=== PATIENT | male | born 1980 | race African-American/Black ===

== ENCOUNTER 2017-12-11 13:40 | Outpatient (CLI) | payer BC | END 2017-12-11 15:53 | disposition home or self-care (01) | LOC: HPC 13:40 | DX: C16.9 Malignant neoplasm of stomach, unspecified (principal); N17.9 Acute kidney failure, unspecified; E87.5 Hyperkalemia; Z93.6 Other artificial openings of urinary tract status | CPT/HCPCS: G0463 ==

== ENCOUNTER 2018-09-06 17:16 | Inpatient (IN) | payer BC ==
[2018-09-06] MEDS ORDERED: DEXTROSE 50% 50 ML SYRINGE (17:49)
[2018-09-06 18:14] LABS: WHITE BLOOD COUNT 3.8 10^3/ul (4.8-10.8)
[2018-09-06 18:14] LABS: ABNORMAL IP MESSAGE 1; HEMATOCRIT 29.9 % (42.0-52.0); HEMOGLOBIN 9.1 g/dl (14.0-18.0); MEAN CORPUSCULAR HEMOGLOBIN 24.9 pg (29.0-33.0); MEAN CORPUSCULAR HGB CONC 30.4 g/dl (32.0-37.0); MEAN CORPUSCULAR VOLUME 81.9 fl (82.0-101.0); MEAN PLATELET VOLUME 9.6 fl (7.4-10.4); PLATELET COUNT 202 10^3/UL (140-415); POSITIVE DIFF @See below; RED BLOOD COUNT 3.65 10^6/ul (4.70-6.10); RED CELL DISTRIBUTION WIDTH 25.7 % (11.5-14.5)
[2018-09-06] MEDS: SOD CHLORIDE 0.9% 1,000 ML IV (18:18)
[2018-09-06 18:19] LABS: ADD MAN DIFF? YES
[2018-09-06 18:29] LABS: INR 1.64; PROTIME 19.8 Sec (11.9-14.9); PT RATIO 1.5
[2018-09-06 18:30] LABS: PARTIAL THROMBOPLASTIN TIME 43.2 Sec (23.0-35.0)
[2018-09-06] MEDS: DEXTROSE 50% 50 ML SYRINGE IV (18:32)
[2018-09-06 18:33] LABS: ALANINE AMINOTRANSFERASE 39 IU/L (13-69); ALBUMIN/GLOBULIN RATIO 0.76; ALKALINE PHOSPHATASE 61 IU/L (42-121); ANION GAP 12 (8-16); ASPARTATE AMINO TRANSFERASE 52 IU/L (15-46); BILIRUBIN,INDIRECT 0.3 mg/dl (0-1.1); BILIRUBIN,TOTAL 0.3 mg/dl (0.2-1.3); BLOOD UREA NITROGEN 51 mg/dl (7-20); CALCIUM 7.4 mg/dl (8.4-10.2); CARBON DIOXIDE 22 mmol/L (21-31); CHLORIDE 108 mmol/L (97-110); CREATININE 1.09 mg/dl (0.61-1.24); GLUCOSE 84 mg/dl (70-220); SODIUM 138 mmol/L (135-144); TOTAL PROTEIN 4.6 g/dl (6.1-8.1)
[2018-09-06 18:34] LABS: LACTIC ACID 1.9 mmol/L (0.5-2.0)
[2018-09-06] MEDS: NALOXONE (0.4 MG/ML) INJ IV (18:46)
[2018-09-06] MEDS: LORAZEPAM 2 MG INJ IV (18:50)
[2018-09-06 18:54] LABS: ACANTHOCYTES 1+ (0-0); ANISOCYTOSIS 2+ (0-0); BAND NEUTROPHILS #M 1.2 10^3/ul (0.0-0.6); BAND NEUTROPHILS % (M) 32 % (0-4); BURR CELLS 2+ (0-0); ECHINOCYTOSIS 2+ (0-0); GIANT THROMBO% (M) 4 % (0-0); LYMPHOCYTES #M 0.6 10^3/ul (0.8-2.9); LYMPHOCYTES % (M) 18 % (15-51); METAMYELOCYTES %M 2 % (0-0); MONOCYTE #M 0.2 10^3/ul (0.3-0.9); MONOCYTES % (M) 7 % (0-11); MYELOCYTES #M 0.1 10^3/ul (0.0-0.0); MYELOCYTES % (M) 4 % (0-0); OVALOCYTES 1+ (0-0); POIKILOCYTOSIS 3+ (0-0); POLYCHROMASIA 1+ (0-0); SCHISTOCYTES 1+ (0-0); SEG NEUT #M 1.5 10^3/ul (1.6-7.5); SEGMENTED NEUTROPHILS (M) % 37 % (39-77); SMUDGE%M 17 % (0-0); SPHEROCYTES 1+ (0-0); TARGET CELLS 1+ (0-0)
[2018-09-06] MEDS ORDERED: ACETAMINOPHEN 325 MG TAB PO ×2 (21:00→22:30)
[2018-09-06] MEDS ORDERED: ONDANSETRON 4 MG INJ IV ×2 (21:00→22:30)
[2018-09-06] MEDS ORDERED: ALBUTEROL/IPRATROPIUM (NEB) 3 ML AMP HHN (22:30)
[2018-09-06] MEDS ORDERED: NACL 0.9% 3 ML SYG IV (22:30)
[2018-09-06] MEDS ORDERED: HYDROCODONE/APAP (5/325) TAB PO ×2 (22:30)
[2018-09-06] MEDS ORDERED: PROCHLORPERAZINE 10 MG TAB PO (22:30)
[2018-09-06] MEDS: CEFEPIME 2GM/50 ML (PMX) 50 ML IVPB (22:34)
[2018-09-07] MEDS: SOD CHLORIDE 0.9% 1,000 ML IV (00:39)
[2018-09-07] MEDS: VANCOMYCIN 1 GM (PMX) 250 ML IVPB (00:39)
[2018-09-07] MEDS ORDERED: GUAIFENESIN/CODEINE 5ML CUP PO (01:30)
[2018-09-07] MEDS ORDERED: DEXTROSE 50% 50 ML SYRINGE ×3 (04:07→07:00)
[2018-09-07] MEDS ORDERED: NORepinephrine 8MG/250 ML (PMX 250 ML IV (05:00)
[2018-09-07] MEDS ORDERED: VANCOMYCIN IV PER PHARMACY XX (05:00)
[2018-09-07 05:13] LABS: ADD MAN DIFF? NO
[2018-09-07 05:19] LABS: WHITE BLOOD COUNT 3.6 10^3/ul (4.8-10.8)
[2018-09-07 05:19] LABS: ABNORMAL IP MESSAGE 1; BASOPHILS % 0.6 % (0.0-2.0); HEMATOCRIT 25.6 % (42.0-52.0); HEMOGLOBIN 8.1 g/dl (14.0-18.0); LYMPHOCYTES # 0.6 10^3/ul (0.8-2.9); LYMPHOCYTES % 16.1 % (15.0-51.0); MEAN CORPUSCULAR HEMOGLOBIN 25.9 pg (29.0-33.0); MEAN CORPUSCULAR HGB CONC 31.6 g/dl (32.0-37.0); MEAN CORPUSCULAR VOLUME 81.8 fl (82.0-101.0); MEAN PLATELET VOLUME 9.6 fl (7.4-10.4); MONOCYTE # 0.1 10^3/ul (0.3-0.9); MONOCYTES % 2.8 % (0.0-11.0); NEUTROPHIL # 2.9 10^3/ul (1.6-7.5); NEUTROPHILS % 79.9 % (39.0-77.0); PLATELET COUNT 164 10^3/UL (140-415); POSITIVE DIFF @See below; RED BLOOD COUNT 3.13 10^6/ul (4.70-6.10); RED CELL DISTRIBUTION WIDTH 25.6 % (11.5-14.5)
[2018-09-07] MEDS: DEXTROSE 5%-0.45% NACL 1,000 ML IV ×2 (05:30)
[2018-09-07 06:02] LABS: ALANINE AMINOTRANSFERASE 38 IU/L (13-69); ALBUMIN 1.5 g/dl (3.3-4.9); ALBUMIN/GLOBULIN RATIO 0.75; ALKALINE PHOSPHATASE 48 IU/L (42-121); ANION GAP 11 (8-16); ASPARTATE AMINO TRANSFERASE 48 IU/L (15-46); BILIRUBIN,INDIRECT 0.3 mg/dl (0-1.1); BILIRUBIN,TOTAL 0.3 mg/dl (0.2-1.3); BLOOD UREA NITROGEN 54 mg/dl (7-20); CALCIUM 6.4 mg/dl (8.4-10.2); CARBON DIOXIDE 23 mmol/L (21-31); CHLORIDE 110 mmol/L (97-110); CREATININE 0.96 mg/dl (0.61-1.24); GLUCOSE 205 mg/dl (70-220); MAGNESIUM 2.3 mg/dl (1.7-2.5); POTASSIUM 4.4 mmol/L (3.5-5.1); SODIUM 140 mmol/L (135-144); TOTAL PROTEIN 3.5 g/dl (6.1-8.1)
[2018-09-07] MEDS ORDERED: NA BICARBONATE 8.4% 50 ML SYG (07:00)
[2018-09-07] MEDS: LIDOCAINE 1% (MPF) 5 ML VIAL SC (07:00)
[2018-09-07] MEDS ORDERED: EPINEPHrine 100 MCG/10 ML SYG IV (07:00)
[2018-09-07 08:36] LABS: Allen Test ACCEPTAB; Arterial Base Excess -8.6 mmol/L (-3.0-3); Arterial Blood Gas Oxygen Sat 89.4 mmHG (95.0-98.0); Arterial COHb 0.9 % (0.0-3.0); Arterial Fraction of Oxyhgb 88.3 % (93.0-99.0); Arterial HCO3 17.4 mmol/L (22.0-26.0); Arterial MetHb 0.3 % (0.0-1.5); Arterial Total Hemglobin 12.2 g/dl (12.0-18.0); Arterial pCO2 37.6 mmhg (35-45); MODE VENT - AC; Site Right Radial
[2018-09-07 08:37] LABS: ANISOCYTOSIS 2+ (0-0); BAND NEUTROPHILS #M 1.5 10^3/ul (0.0-0.6); BAND NEUTROPHILS % (M) 43 % (0-4); BURR CELLS 2+ (0-0); LYMPHOCYTES #M 0.6 10^3/ul (0.8-2.9); LYMPHOCYTES % (M) 19 % (15-51); METAMYELOCYTES #M 0.1 10^3/ul (0.0-0.0); METAMYELOCYTES %M 3 % (0-0); MONOCYTE #M 0.1 10^3/ul (0.3-0.9); MONOCYTES % (M) 4 % (0-11); MYELOCYTES % (M) 1 % (0-0); OVALOCYTES 1+ (0-0); PLATELET ESTIMATE NORMAL; POIKILOCYTOSIS 3+ (0-0); REACTIVE LYMPHOCYTES% (M) 1 % (0-0); SCHISTOCYTES 1+ (0-0); SEG NEUT #M 1.1 10^3/ul (1.6-7.5); SEGMENTED NEUTROPHILS (M) % 29 % (39-77); SMUDGE%M 27 % (0-0); TARGET CELLS 1+ (0-0)
[2018-09-07] MEDS: HYDROmorphONE 1 MG/ML SYG IV (08:53)
[2018-09-07] MEDS ORDERED: SUCCINYLCHOLINE CHLORIDE 100 MG/5 ML SYG IV ×2 (09:00)
[2018-09-07] MEDS: oxyCODONE (CR) 10 MG TAB [oxyCONTIN] PO ×2 (09:00→20:53)
[2018-09-07] MEDS: DIVALPROEX (EC) 500 MG TAB PO ×2 (09:00→09:17)
[2018-09-07] MEDS ORDERED: ETOMIDATE 20 MG INJ (09:00)
[2018-09-07] MEDS: NA BICARBONATE 8.4% 50 ML SYG IV ×2 (09:16→20:58)
[2018-09-07] MEDS: GABAPENTIN 300 MG CAP PO ×4 (09:17→20:59)
[2018-09-07] MEDS: DOCUSATE SODIUM 100 MG CAP PO ×2 (09:17→20:59)
[2018-09-07] MEDS: CEFEPIME 1GM/50 ML (PMX) 50 ML IVPB (09:17)
[2018-09-07] MEDS: CREON (24K-76K-120K) 1 CAP PO ×4 (09:59→17:31)
[2018-09-07] MEDS: LAMOTRIGINE 100 MG TAB PO ×2 (09:59→20:59)
[2018-09-07] MEDS: SODIUM BICARBONATE (IV ADD) 50 MEQ in DEXTROSE 5%-0.45% NACL 1,000 ML IV (10:15)
[2018-09-07] MEDS: DEXTROSE 50% 50 ML SYRINGE IV ×2 (10:42→13:07)
[2018-09-07] MEDS ORDERED: GLUCOSE GEL 15 GRAM TUBE PO ×2 (11:00)
[2018-09-07] MEDS ORDERED: GLUCOSE GEL 15 GRAM TUBE BUCCAL (11:00)
[2018-09-07] MEDS ORDERED: DEXTROSE 50% 50 ML SYRINGE IV (11:00)
[2018-09-07] MEDS ORDERED: GLUCAGON 1 MG INJ IM (11:00)
[2018-09-07] MEDS: MIDAZOLAM (DRIP) 50 mg/50 mL 50 ML IV (12:22)
[2018-09-07] MEDS: VANCOMYCIN 750 MG in SOD CHLORIDE 0.9% 150 ML IVPB (12:39)
[2018-09-07] MEDS ORDERED: LACTATED RINGER'S 1,000 ML IV (13:00)
[2018-09-07] MEDS ORDERED: LACTATED RINGER'S 500 ML IV (13:00)
[2018-09-07] MEDS ORDERED: FENTAnyl (DRIP) 1000 mcg/100mL 100 ML IV (13:00)
[2018-09-07] MEDS ORDERED: DEXTROSE 5%-LR 1,000 ML IV (13:00)
[2018-09-07] MEDS: LACTATED RINGER'S 500 ML IV (13:07)
[2018-09-07 13:11] LABS: LACTIC ACID 2.1 mmol/L (0.5-2.0)
[2018-09-07] MEDS: HEPARIN 5,000 UNIT/0.5 ML VIAL SC ×2 (13:16→21:00)
[2018-09-07] MEDS: FENTAnyl (DRIP) 1000 mcg/100mL 100 ML IV (13:17)
[2018-09-07] MEDS ORDERED: [UNRECOGNIZED DRUG - OTHER] IV (13:30)
[2018-09-07] MEDS ORDERED: DEXTROSE 10% IV ×2 (13:30→16:30)
[2018-09-07] MEDS: HYDROCORTISONE 100 MG INJ IV ×2 (14:10→22:06)
[2018-09-07] MEDS: MEROPENEM 1 GM/50ML(PMX) 50 ML IVPB ×2 (14:11→22:06)
[2018-09-07 14:39] LABS: AADO2 Arterial 539.5 mmHg (7.0-24.0); Allen Test ACCEPTAB; Arterial Base Excess -6.8 mmol/L (-3.0-3); Arterial Blood Gas Oxygen Sat 96.7 mmHG (95.0-98.0); Arterial COHb 0.3 % (0.0-3.0); Arterial Fraction of Oxyhgb 96.1 % (93.0-99.0); Arterial HCO3 18.7 mmol/L (22.0-26.0); Arterial MetHb 0.3 % (0.0-1.5); Arterial pCO2 37.5 mmhg (35-45); MODE VENT - AC; Site Left Radial
[2018-09-07] MEDS: VALPROIC ACID LIQUID CUP 250 MG/5 ML CUP NGT ×2 (15:02→20:59)
[2018-09-07] MEDS ORDERED: LACTATED RINGER S IV (16:00)
[2018-09-07] MEDS ORDERED: DEXTROSE 50% IV (16:00)
[2018-09-07] MEDS ORDERED: [UNRECOGNIZED DRUG - OTHER] IV (16:30)
[2018-09-07] MEDS ORDERED: INSULIN ASPART [NOVOLOG] 3 ML PEN SC (17:00)
[2018-09-07] MEDS: DEXTROSE 10% IV (17:21)
[2018-09-07] MEDS: [UNRECOGNIZED DRUG - OTHER] IV (17:21)
[2018-09-07] MEDS: VASOPRESSIN 60 UNIT in DEXTROSE 5% 57 ML IV (17:59)
[2018-09-07] MEDS ORDERED: SODIUM BICARBONATE (IV ADD) 100 MEQ in DEXTROSE 5%-0.9% NACL 1,000 ML IV (20:30)
[2018-09-07] MEDS ORDERED: SODIUM BICARBONATE (IV ADD) 100 MEQ in DEXTROSE 5% 1,000 ML IV (21:00)
[2018-09-07] MEDS: SODIUM BICARBONATE (IV ADD) 100 MEQ in DEXTROSE 5% 1,000 ML IV (23:03)
[2018-09-08] MEDS: VANCOMYCIN 750 MG in SOD CHLORIDE 0.9% 150 ML IVPB ×2 (00:33→14:59)
[2018-09-08] MEDS: [UNRECOGNIZED DRUG - OTHER] IV ×2 (00:36→09:01)
[2018-09-08] MEDS: DEXTROSE 10% IV ×2 (00:36→09:01)
[2018-09-08] MEDS: ACCU-CHEK XX (02:00)
[2018-09-08 05:55] LABS: ABNORMAL IP MESSAGE 1; HEMATOCRIT 27.2 % (42.0-52.0); HEMOGLOBIN 8.6 g/dl (14.0-18.0); MEAN CORPUSCULAR HEMOGLOBIN 25.1 pg (29.0-33.0); MEAN CORPUSCULAR HGB CONC 31.6 g/dl (32.0-37.0); MEAN CORPUSCULAR VOLUME 79.3 fl (82.0-101.0); MEAN PLATELET VOLUME 11.5 fl (7.4-10.4); PLATELET COUNT 139 10^3/UL (140-415); POSITIVE DIFF @See below; RED BLOOD COUNT 3.43 10^6/ul (4.70-6.10); RED CELL DISTRIBUTION WIDTH 25.3 % (11.5-14.5)
[2018-09-08] MEDS: HYDROCORTISONE 100 MG INJ IV ×3 (06:05→21:07)
[2018-09-08] MEDS: MEROPENEM 1 GM/50ML(PMX) 50 ML IVPB ×3 (06:05→21:07)
[2018-09-08 06:12] LABS: ADD MAN DIFF? YES
[2018-09-08 06:22] LABS: ALANINE AMINOTRANSFERASE 38 IU/L (13-69); ALBUMIN 1.5 g/dl (3.3-4.9); ALBUMIN/GLOBULIN RATIO 0.71; ALKALINE PHOSPHATASE 77 IU/L (42-121); ANION GAP 10 (8-16); ASPARTATE AMINO TRANSFERASE 40 IU/L (15-46); BILIRUBIN,INDIRECT 0.3 mg/dl (0-1.1); BILIRUBIN,TOTAL 0.3 mg/dl (0.2-1.3); BLOOD UREA NITROGEN 53 mg/dl (7-20); CALCIUM 6.7 mg/dl (8.4-10.2); CARBON DIOXIDE 25 mmol/L (21-31); CHLORIDE 109 mmol/L (97-110); CREATININE 0.97 mg/dl (0.61-1.24); GLUCOSE 114 mg/dl (70-220); POTASSIUM 3.7 mmol/L (3.5-5.1); SODIUM 140 mmol/L (135-144); TOTAL PROTEIN 3.6 g/dl (6.1-8.1)
[2018-09-08 06:41] LABS: AADO2 Arterial 269.6 mmHg (7.0-24.0); Allen Test ACCEPTAB; Arterial Base Excess -3.1 mmol/L (-3.0-3); Arterial Blood Gas Oxygen Sat 97.6 mmHG (95.0-98.0); Arterial COHb 0.3 % (0.0-3.0); Arterial HCO3 21.3 mmol/L (22.0-26.0); Arterial MetHb 0.3 % (0.0-1.5); Arterial Total Hemglobin 9.9 g/dl (12.0-18.0); Arterial pCO2 35.1 mmhg (35-45); MODE VENT - AC; Site Right Radial
[2018-09-08 07:24] LABS: ANISOCYTOSIS 2+ (0-0); BAND NEUTROPHILS #M 4.9 10^3/ul (0.0-0.6); BAND NEUTROPHILS % (M) 35 % (0-4); BURR CELLS 3+ (0-0); LYMPHOCYTES #M 3.3 10^3/ul (0.8-2.9); LYMPHOCYTES % (M) 24 % (15-51); METAMYELOCYTES #M 0.2 10^3/ul (0.0-0.0); METAMYELOCYTES %M 2 % (0-0); MYELOCYTES #M 0.8 10^3/ul (0.0-0.0); MYELOCYTES % (M) 6 % (0-0); PLATELET ESTIMATE DECREASED; POIKILOCYTOSIS 3+ (0-0); REACTIVE LYMPHOCYTES #M 0.2 10^3/ul (0.0-0.0); REACTIVE LYMPHOCYTES% (M) 2 % (0-0); SEGMENTED NEUTROPHILS (M) % 31 % (39-77); SMUDGE%M 35 % (0-0); TARGET CELLS 1+ (0-0); TOXIC GRANULATION 1+ (0-0)
[2018-09-08] MEDS: FENTAnyl (DRIP) 1000 mcg/100mL 100 ML IV (07:29)
[2018-09-08] MEDS: CREON (24K-76K-120K) 1 CAP PO ×3 (07:35→18:01)
[2018-09-08] MEDS: oxyCODONE (CR) 10 MG TAB [oxyCONTIN] PO ×2 (08:50→21:00)
[2018-09-08] MEDS: GABAPENTIN 300 MG CAP PO ×3 (08:55→21:00)
[2018-09-08] MEDS: VALPROIC ACID LIQUID CUP 250 MG/5 ML CUP NGT ×2 (09:01→21:08)
[2018-09-08] MEDS: DOCUSATE SODIUM 100 MG CAP PO ×2 (09:01→21:08)
[2018-09-08] MEDS: LAMOTRIGINE 100 MG TAB PO ×2 (09:02→21:08)
[2018-09-08] MEDS: HEPARIN 5,000 UNIT/0.5 ML VIAL SC (09:04)
[2018-09-08] MEDS: SODIUM BICARBONATE (IV ADD) 100 MEQ in DEXTROSE 5% 1,000 ML IV (12:16)
[2018-09-08] MEDS ORDERED: HEPARIN 1000 UNITS/ML 10 ML INJ IV ×2 (12:30)
[2018-09-08] MEDS ORDERED: HEPARIN 25000 UNITS/250 ML 250 ML IV (13:30)
[2018-09-08 13:34] LABS: WHITE BLOOD COUNT 8.1 10^3/ul (4.8-10.8)
[2018-09-08 13:34] LABS: ABNORMAL IP MESSAGE 1; HEMATOCRIT 24.6 % (42.0-52.0); HEMOGLOBIN 7.9 g/dl (14.0-18.0); MEAN CORPUSCULAR HEMOGLOBIN 25.4 pg (29.0-33.0); MEAN CORPUSCULAR HGB CONC 32.1 g/dl (32.0-37.0); MEAN CORPUSCULAR VOLUME 79.1 fl (82.0-101.0); MEAN PLATELET VOLUME 10.5 fl (7.4-10.4); PLATELET COUNT 92 10^3/UL (140-415); POSITIVE DIFF @See below; RED BLOOD COUNT 3.11 10^6/ul (4.70-6.10); RED CELL DISTRIBUTION WIDTH 25.2 % (11.5-14.5)
[2018-09-08 13:38] LABS: ADD MAN DIFF? YES
[2018-09-08 13:54] LABS: INR 1.61; PROTIME 19.5 Sec (11.9-14.9); PT RATIO 1.5
[2018-09-08 14:15] LABS: ANISOCYTOSIS 1+ (0-0); BAND NEUTROPHILS #M 1.6 10^3/ul (0.0-0.6); BAND NEUTROPHILS % (M) 20 % (0-4); BURR CELLS 3+ (0-0); HYPOCHROMASIA 2+ (0-0); LYMPHOCYTES #M 0.8 10^3/ul (0.8-2.9); LYMPHOCYTES % (M) 11 % (15-51); MONOCYTE #M 0.1 10^3/ul (0.3-0.9); MONOCYTES % (M) 2 % (0-11); MYELOCYTES % (M) 1 % (0-0); PLATELET ESTIMATE NORMAL; POIKILOCYTOSIS 3+ (0-0); POLYCHROMASIA 1+ (0-0); SEG NEUT #M 5.5 10^3/ul (1.6-7.5); SEGMENTED NEUTROPHILS (M) % 66 % (39-77); SMUDGE%M 1 % (0-0); TARGET CELLS 1+ (0-0)
[2018-09-08 14:15] LABS: VANCOMYCIN,TROUGH 13.1 ug/ml (10.0-20.0)
[2018-09-08] MEDS: HEPARIN 25000 UNITS/250 ML 250 ML IV (15:04)
[2018-09-08] MEDS: MIDAZOLAM (DRIP) 50 mg/50 mL 50 ML IV (15:29)
[2018-09-08 16:01] LABS: CREATINE KINASE 231 IU/L (23-200)
[2018-09-08 16:14] LABS: CK INDEX 1.4; CK-MB 3.17 ng/ml (0.0-2.4); TROPONIN-I 0.026 ng/ml (0.000-0.120)
[2018-09-08 21:43] LABS: ADD UMIC NO; UR ASCORBIC ACID NEGATIVE (NEGATIVE); UR BACTERIA FEW /HPF (NONE SEEN); UR BILIRUBIN (Dip) NEGATIVE (NEGATIVE); UR BLOOD (Dip) NEGATIVE (NEGATIVE); UR CLARITY SLIGHTLY CLOUDY (CLEAR); UR COLOR YELLOW (YELLOW); UR GLUCOSE (Dip) NEGATIVE (NEGATIVE); UR KETONES (Dip) NEGATIVE (NEGATIVE); UR LEUKOCYTE ESTERASE (Dip) NEGATIVE Leu/ul (NEGATIVE); UR NITRITE (Dip) NEGATIVE (NEGATIVE); UR RBC 1 /HPF (0-5); UR SPECIFIC GRAVITY (Dip) 1.019 (1.003-1.030); UR TOTAL PROTEIN (Dip) NEGATIVE (NEGATIVE); UR UROBILINOGEN (Dip) NEGATIVE (NEGATIVE); UR WBC 1 /HPF (0-5)
[2018-09-08] MEDS: VASOPRESSIN 60 UNIT in DEXTROSE 5% 57 ML IV (21:46)
[2018-09-08 22:05] LABS: AMPHETAMINE/METHAMPHETAMINE Negative (NEGATIVE); BARBITURATES Negative (NEGATIVE); CANNABINOIDS Negative (NEGATIVE)
[2018-09-08 22:06] LABS: PARTIAL THROMBOPLASTIN TIME 89.2 Sec (23.0-35.0)
[2018-09-08 22:08] LABS: BENZODIAZEPINES Positive (NEGATIVE); OPIATES Positive (NEGATIVE)
[2018-09-08 22:25] LABS: COCAINE Negative (NEGATIVE)
[2018-09-09] MEDS: VANCOMYCIN 750 MG in SOD CHLORIDE 0.9% 150 ML IVPB ×2 (00:39→14:34)
[2018-09-09] MEDS: [UNRECOGNIZED DRUG - OTHER] IV ×2 (00:55→06:01)
[2018-09-09] MEDS: DEXTROSE 10% IV ×2 (00:55→06:01)
[2018-09-09] MEDS: ACCU-CHEK XX (02:39)
[2018-09-09] MEDS: FENTAnyl (DRIP) 1000 mcg/100mL 100 ML IV ×2 (02:41→23:28)
[2018-09-09 04:06] LABS: WHITE BLOOD COUNT 8.8 10^3/ul (4.8-10.8)
[2018-09-09 04:06] LABS: ABNORMAL IP MESSAGE 1; HEMATOCRIT 24.5 % (42.0-52.0); HEMOGLOBIN 8.1 g/dl (14.0-18.0); MEAN CORPUSCULAR HEMOGLOBIN 25.6 pg (29.0-33.0); MEAN CORPUSCULAR HGB CONC 33.1 g/dl (32.0-37.0); MEAN CORPUSCULAR VOLUME 77.3 fl (82.0-101.0); PLATELET COUNT 74 10^3/UL (140-415); POSITIVE DIFF @See below; RED BLOOD COUNT 3.17 10^6/ul (4.70-6.10); RED CELL DISTRIBUTION WIDTH 25.1 % (11.5-14.5)
[2018-09-09 04:12] LABS: CREATINE KINASE 204 IU/L (23-200)
[2018-09-09 04:24] LABS: CK INDEX 0.8; CK-MB 1.56 ng/ml (0.0-2.4); TROPONIN-I 0.014 ng/ml (0.000-0.120)
[2018-09-09 04:27] LABS: PARTIAL THROMBOPLASTIN TIME 155.2 Sec (23.0-35.0)
[2018-09-09 04:58] LABS: B-TYPE NATRIURETIC PEPTIDE 21200 PG/ML (0-125)
[2018-09-09 05:06] LABS: ANISOCYTOSIS 2+ (0-0); BAND NEUTROPHILS % (M) 23 % (0-4); LYMPHOCYTES #M 0.8 10^3/ul (0.8-2.9); LYMPHOCYTES % (M) 10 % (15-51); PLATELET ESTIMATE DECREASED; POIKILOCYTOSIS 3+ (0-0); SEG NEUT #M 6.1 10^3/ul (1.6-7.5); SEGMENTED NEUTROPHILS (M) % 67 % (39-77); SMUDGE%M 11 % (0-0)
[2018-09-09 05:10] LABS: ADD MAN DIFF? YES
[2018-09-09 05:17] LABS: ALBUMIN 1.9 g/dl (3.3-4.9); ALBUMIN/GLOBULIN RATIO 0.86; ALKALINE PHOSPHATASE 73 IU/L (42-121); ANION GAP 8 (8-16); ASPARTATE AMINO TRANSFERASE 35 IU/L (15-46); BILIRUBIN,INDIRECT 0.5 mg/dl (0-1.1); BILIRUBIN,TOTAL 0.5 mg/dl (0.2-1.3); BLOOD UREA NITROGEN 41 mg/dl (7-20); CALCIUM 6.9 mg/dl (8.4-10.2); CARBON DIOXIDE 25 mmol/L (21-31); CHLORIDE 112 mmol/L (97-110); CREATININE 0.83 mg/dl (0.61-1.24); GLUCOSE 156 mg/dl (70-220); POTASSIUM 3.9 mmol/L (3.5-5.1); SODIUM 141 mmol/L (135-144); TOTAL PROTEIN 4.1 g/dl (6.1-8.1)
[2018-09-09 05:19] LABS: THYROID STIMULATING HORMONE 0.371 MIU/L (0.465-4.680)
[2018-09-09] MEDS: HYDROCORTISONE 100 MG INJ IV ×3 (05:58→21:18)
[2018-09-09] MEDS: MEROPENEM 1 GM/50ML(PMX) 50 ML IVPB ×3 (05:59→21:18)
[2018-09-09 06:00] LABS: ALANINE AMINOTRANSFERASE 48 IU/L (13-69)
[2018-09-09] MEDS: oxyCODONE (CR) 10 MG TAB [oxyCONTIN] PO ×2 (08:50→20:12)
[2018-09-09] MEDS: GABAPENTIN 300 MG CAP PO ×3 (09:00→20:11)
[2018-09-09] MEDS: CREON (24K-76K-120K) 1 CAP PO ×3 (09:05→18:31)
[2018-09-09] MEDS: VALPROIC ACID LIQUID CUP 250 MG/5 ML CUP NGT ×2 (09:06→20:11)
[2018-09-09] MEDS: DOCUSATE SODIUM 100 MG CAP PO ×2 (09:06→20:11)
[2018-09-09] MEDS: LAMOTRIGINE 100 MG TAB PO ×2 (09:06→20:11)
[2018-09-09 10:51] LABS: PARTIAL THROMBOPLASTIN TIME 60.1 Sec (23.0-35.0)
[2018-09-09] MEDS: HYDROmorphONE 1 MG/ML SYG IV (11:19)
[2018-09-09] MEDS: FONDAPARINUX 7.5 MG SYG SC (12:36)
[2018-09-09] MEDS: MIDAZOLAM (DRIP) 50 mg/50 mL 50 ML IV (18:32)
[2018-09-10] MEDS: VANCOMYCIN 750 MG in SOD CHLORIDE 0.9% 150 ML IVPB ×2 (00:16→12:42)
[2018-09-10] MEDS: ACCU-CHEK XX (01:25)
[2018-09-10] MEDS: MEROPENEM 1 GM/50ML(PMX) 50 ML IVPB ×3 (05:31→22:17)
[2018-09-10] MEDS: HYDROCORTISONE 100 MG INJ IV ×3 (05:31→21:19)
[2018-09-10 05:39] LABS: ABNORMAL IP MESSAGE 1; HEMATOCRIT 22.2 % (42.0-52.0); HEMOGLOBIN 7.2 g/dl (14.0-18.0); MEAN CORPUSCULAR HEMOGLOBIN 25.5 pg (29.0-33.0); MEAN CORPUSCULAR HGB CONC 32.4 g/dl (32.0-37.0); MEAN CORPUSCULAR VOLUME 78.7 fl (82.0-101.0); MEAN PLATELET VOLUME 9.7 fl (7.4-10.4); PLATELET COUNT 54 10^3/UL (140-415); POSITIVE DIFF @See below; RED BLOOD COUNT 2.82 10^6/ul (4.70-6.10); RED CELL DISTRIBUTION WIDTH 25.3 % (11.5-14.5)
[2018-09-10 05:39] LABS: WHITE BLOOD COUNT 8.3 10^3/ul (4.8-10.8)
[2018-09-10] MEDS: [UNRECOGNIZED DRUG - OTHER] IV ×2 (05:40→23:24)
[2018-09-10] MEDS: DEXTROSE 10% IV ×2 (05:40→23:24)
[2018-09-10 06:02] LABS: ANION GAP 5 (8-16); BLOOD UREA NITROGEN 34 mg/dl (7-20); CALCIUM 6.8 mg/dl (8.4-10.2); CARBON DIOXIDE 28 mmol/L (21-31); CHLORIDE 112 mmol/L (97-110); CREATININE 0.69 mg/dl (0.61-1.24); GLUCOSE 126 mg/dl (70-220); POTASSIUM 4.1 mmol/L (3.5-5.1); SODIUM 141 mmol/L (135-144)
[2018-09-10 06:18] LABS: ADD MAN DIFF? YES
[2018-09-10 07:43] LABS: ANISOCYTOSIS 1+ (0-0); BAND NEUTROPHILS #M 0.8 10^3/ul (0.0-0.6); BAND NEUTROPHILS % (M) 10 % (0-4); BURR CELLS 1+ (0-0); HYPOCHROMASIA 1+ (0-0); LYMPHOCYTES #M 0.7 10^3/ul (0.8-2.9); LYMPHOCYTES % (M) 9 % (15-51); MONOCYTE #M 0.1 10^3/ul (0.3-0.9); MONOCYTES % (M) 2 % (0-11); OVALOCYTES 1+ (0-0); PLATELET ESTIMATE DECREASED; POIKILOCYTOSIS 3+ (0-0); SEG NEUT #M 6.6 10^3/ul (1.6-7.5); SEGMENTED NEUTROPHILS (M) % 79 % (39-77); SMUDGE%M 9 % (0-0)
[2018-09-10] MEDS: CREON (24K-76K-120K) 1 CAP PO ×3 (08:12→17:09)
[2018-09-10] MEDS: HYDROmorphONE 1 MG/ML SYG IV ×2 (08:12→22:18)
[2018-09-10] MEDS: DOCUSATE SODIUM 100 MG CAP PO ×2 (08:35→21:19)
[2018-09-10] MEDS: oxyCODONE (CR) 10 MG TAB [oxyCONTIN] PO ×2 (08:38→21:20)
[2018-09-10] MEDS: GABAPENTIN 300 MG CAP PO ×3 (08:38→21:19)
[2018-09-10] MEDS: VALPROIC ACID LIQUID CUP 250 MG/5 ML CUP NGT ×2 (08:38→21:19)
[2018-09-10] MEDS: LAMOTRIGINE 100 MG TAB PO ×2 (08:38→21:19)
[2018-09-10] MEDS: FONDAPARINUX 7.5 MG SYG SC (08:47)
[2018-09-10] MEDS: DIGOXIN 500 MCG INJ IV (12:42)
[2018-09-10 14:10] LABS: AADO2 Arterial 611.8 mmHg (7.0-24.0)
[2018-09-10] MEDS ORDERED: NORepinephrine 8MG/250 ML (PMX 250 ML (14:46)
[2018-09-10] MEDS: NORepinephrine 8MG/250 ML (PMX 250 ML IV (14:59)
[2018-09-10] MEDS: FENTAnyl (DRIP) 1000 mcg/100mL 100 ML IV (16:03)
[2018-09-10] MEDS: MIDAZOLAM (DRIP) 50 mg/50 mL 50 ML IV (18:48)
[2018-09-11] MEDS: VANCOMYCIN 750 MG in SOD CHLORIDE 0.9% 150 ML IVPB (01:03)
[2018-09-11] MEDS: ACCU-CHEK XX (01:19)
[2018-09-11] MEDS: FENTAnyl (DRIP) 1000 mcg/100mL 100 ML IV ×2 (05:06→18:33)
[2018-09-11] MEDS: [UNRECOGNIZED DRUG - OTHER] IV (05:19)
[2018-09-11] MEDS: DEXTROSE 10% IV (05:19)
[2018-09-11 05:27] LABS: WHITE BLOOD COUNT 10.4 10^3/ul (4.8-10.8)
[2018-09-11 05:27] LABS: ABNORMAL IP MESSAGE 1; HEMATOCRIT 22.5 % (42.0-52.0); HEMOGLOBIN 7.1 g/dl (14.0-18.0); MEAN CORPUSCULAR HEMOGLOBIN 25.9 pg (29.0-33.0); MEAN CORPUSCULAR HGB CONC 31.6 g/dl (32.0-37.0); MEAN CORPUSCULAR VOLUME 82.1 fl (82.0-101.0); PLATELET COUNT 52 10^3/UL (140-415); POSITIVE DIFF @See below; RED BLOOD COUNT 2.74 10^6/ul (4.70-6.10); RED CELL DISTRIBUTION WIDTH 25.6 % (11.5-14.5)
[2018-09-11 05:45] LABS: BLOOD UREA NITROGEN 35 mg/dl (7-20); CALCIUM 7.1 mg/dl (8.4-10.2); CARBON DIOXIDE 30 mmol/L (21-31); CHLORIDE 109 mmol/L (97-110); CREATININE 0.65 mg/dl (0.61-1.24); GLUCOSE 119 mg/dl (70-220); POTASSIUM 4.7 mmol/L (3.5-5.1); SODIUM 140 mmol/L (135-144)
[2018-09-11 06:04] LABS: ADD MAN DIFF? YES
[2018-09-11] MEDS: HYDROCORTISONE 100 MG INJ IV ×3 (06:07→21:37)
[2018-09-11] MEDS: MEROPENEM 1 GM/50ML(PMX) 50 ML IVPB ×3 (06:44→21:37)
[2018-09-11] MEDS: CREON (24K-76K-120K) 1 CAP PO ×3 (07:31→17:09)
[2018-09-11 08:13] LABS: ANISOCYTOSIS 1+ (0-0); BAND NEUTROPHILS #M 0.3 10^3/ul (0.0-0.6); BAND NEUTROPHILS % (M) 3 % (0-4); BURR CELLS 2+ (0-0); HYPOCHROMASIA 1+ (0-0); LYMPHOCYTES #M 0.4 10^3/ul (0.8-2.9); LYMPHOCYTES % (M) 4 % (15-51); MONOCYTE #M 0.2 10^3/ul (0.3-0.9); MONOCYTES % (M) 2 % (0-11); OVALOCYTES 1+ (0-0); PLATELET ESTIMATE DECREASED; POIKILOCYTOSIS 3+ (0-0); POLYCHROMASIA 1+ (0-0); SEG NEUT #M 9.5 10^3/ul (1.6-7.5); SEGMENTED NEUTROPHILS (M) % 91 % (39-77); SMUDGE%M 8 % (0-0); TARGET CELLS 1+ (0-0)
[2018-09-11] MEDS: LAMOTRIGINE 100 MG TAB PO ×2 (08:16→21:15)
[2018-09-11] MEDS: GABAPENTIN 300 MG CAP PO ×3 (08:16→21:16)
[2018-09-11] MEDS: COLLAGENASE 5 GM (UD JAR) TOP (08:16)
[2018-09-11] MEDS: oxyCODONE (CR) 10 MG TAB [oxyCONTIN] PO ×2 (08:16→21:15)
[2018-09-11] MEDS: VALPROIC ACID LIQUID CUP 250 MG/5 ML CUP NGT ×2 (08:16→21:15)
[2018-09-11] MEDS: DOCUSATE SODIUM 100 MG CAP PO (08:16)
[2018-09-11] MEDS: FONDAPARINUX 7.5 MG SYG SC (08:35)
[2018-09-11 09:42] LABS: ANION GAP 1 (5-13)
[2018-09-11] MEDS: DIGOXIN 500 MCG INJ IV (13:21)
[2018-09-11] MEDS: DOCUSATE SODIUM 10 MG/ML (10ML CUP) GTB (21:15)
[2018-09-12] MEDS: MIDAZOLAM (DRIP) 50 mg/50 mL 50 ML IV ×2 (00:55→11:59)
[2018-09-12] MEDS: ACCU-CHEK XX (02:00)
[2018-09-12] MEDS: [UNRECOGNIZED DRUG - OTHER] IV ×2 (03:03→23:22)
[2018-09-12] MEDS: DEXTROSE 10% IV ×2 (03:03→23:22)
[2018-09-12 05:33] LABS: WHITE BLOOD COUNT 11.2 10^3/ul (4.8-10.8)
[2018-09-12 05:33] LABS: ABNORMAL IP MESSAGE 1; HEMATOCRIT 21.8 % (42.0-52.0); MEAN CORPUSCULAR HEMOGLOBIN 26.1 pg (29.0-33.0); MEAN CORPUSCULAR HGB CONC 31.2 g/dl (32.0-37.0); MEAN CORPUSCULAR VOLUME 83.5 fl (82.0-101.0); NUCLEATED RED BLOOD CELLS% 0.2 /100WBC (0.0-0.0); PLATELET COUNT 38 10^3/UL (140-415); POSITIVE DIFF @See below; RED BLOOD COUNT 2.61 10^6/ul (4.70-6.10); RED CELL DISTRIBUTION WIDTH 25.6 % (11.5-14.5)
[2018-09-12] MEDS: MEROPENEM 1 GM/50ML(PMX) 50 ML IVPB ×3 (05:48→21:55)
[2018-09-12 05:49] LABS: ADD MAN DIFF? YES
[2018-09-12 05:51] LABS: HEMOGLOBIN 6.8 g/dl (14.0-18.0)
[2018-09-12 06:10] LABS: ANION GAP 0 (5-13); BLOOD UREA NITROGEN 31 mg/dl (7-20); CALCIUM 7.1 mg/dl (8.4-10.2); CARBON DIOXIDE 32 mmol/L (21-31); CHLORIDE 106 mmol/L (97-110); CREATININE 0.51 mg/dl (0.61-1.24); GLUCOSE 141 mg/dl (70-220); SODIUM 138 mmol/L (135-144)
[2018-09-12] MEDS: HYDROCORTISONE 100 MG INJ IV ×3 (06:24→21:55)
[2018-09-12 07:03] LABS: ANISOCYTOSIS 2+ (0-0); BAND NEUTROPHILS #M 0.6 10^3/ul (0.0-0.6); BAND NEUTROPHILS % (M) 6 % (0-4); BURR CELLS 3+ (0-0); HYPOCHROMASIA 2+ (0-0); LYMPHOCYTES #M 0.3 10^3/ul (0.8-2.9); LYMPHOCYTES % (M) 3 % (15-51); PLATELET ESTIMATE SIG DECREASED; POIKILOCYTOSIS 3+ (0-0); POLYCHROMASIA 1+ (0-0); SEG NEUT #M 10.3 10^3/ul (1.6-7.5); SEGMENTED NEUTROPHILS (M) % 91 % (39-77); SMUDGE%M 50 % (0-0); TARGET CELLS 1+ (0-0)
[2018-09-12] MEDS: CREON (24K-76K-120K) 1 CAP PO (07:35)
[2018-09-12] MEDS: FENTAnyl (DRIP) 1000 mcg/100mL 100 ML IV ×2 (07:56→19:13)
[2018-09-12] MEDS: GABAPENTIN 300 MG CAP PO (08:13)
[2018-09-12] MEDS: DOCUSATE SODIUM 10 MG/ML (10ML CUP) GTB ×2 (08:13→20:47)
[2018-09-12] MEDS: oxyCODONE (CR) 10 MG TAB [oxyCONTIN] PO ×2 (08:14→21:00)
[2018-09-12] MEDS: COLLAGENASE 5 GM (UD JAR) TOP (08:14)
[2018-09-12] MEDS: LAMOTRIGINE 100 MG TAB PO ×2 (08:14→20:47)
[2018-09-12] MEDS: VALPROIC ACID LIQUID CUP 250 MG/5 ML CUP NGT ×2 (08:14→20:47)
[2018-09-12] MEDS: FONDAPARINUX 7.5 MG SYG SC (08:16)
[2018-09-12 09:15] LABS: IMMEDIATE SPIN CROSSMATCH 1 1
[2018-09-12] MEDS: DIGOXIN 500 MCG INJ IV (12:11)
[2018-09-13] MEDS: ACCU-CHEK XX (02:00)
[2018-09-13] MEDS: HYDROCORTISONE 100 MG INJ IV ×3 (05:28→21:10)
[2018-09-13] MEDS: MEROPENEM 1 GM/50ML(PMX) 50 ML IVPB ×3 (05:29→21:11)
[2018-09-13] MEDS: MIDAZOLAM (DRIP) 50 mg/50 mL 50 ML IV (05:30)
[2018-09-13 05:40] LABS: ABNORMAL IP MESSAGE 1; HEMATOCRIT 26.8 % (42.0-52.0); HEMOGLOBIN 8.8 g/dl (14.0-18.0); MEAN CORPUSCULAR HEMOGLOBIN 27.7 pg (29.0-33.0); MEAN CORPUSCULAR HGB CONC 32.8 g/dl (32.0-37.0); MEAN CORPUSCULAR VOLUME 84.3 fl (82.0-101.0); NUCLEATED RED BLOOD CELLS% 0.3 /100WBC (0.0-0.0); POSITIVE DIFF @See below; RED BLOOD COUNT 3.18 10^6/ul (4.70-6.10); RED CELL DISTRIBUTION WIDTH 22.5 % (11.5-14.5)
[2018-09-13 05:47] LABS: ADD MAN DIFF? YES; PLATELET COUNT 29 10^3/UL (140-415)
[2018-09-13 05:51] LABS: PARTIAL THROMBOPLASTIN TIME 34.3 Sec (23.0-35.0)
[2018-09-13 05:51] LABS: INR 1.21; PROTIME 15.5 Sec (11.9-14.9); PT RATIO 1.2
[2018-09-13] MEDS: FENTAnyl (DRIP) 1000 mcg/100mL 100 ML IV ×2 (05:55→17:23)
[2018-09-13 06:10] LABS: ALANINE AMINOTRANSFERASE 44 IU/L (13-69); ALBUMIN 1.5 g/dl (3.3-4.9); ALBUMIN/GLOBULIN RATIO 0.68; ALKALINE PHOSPHATASE 114 IU/L (42-121); ANION GAP -3 (5-13); ASPARTATE AMINO TRANSFERASE 41 IU/L (15-46); BILIRUBIN,INDIRECT 0.4 mg/dl (0-1.1); BILIRUBIN,TOTAL 0.4 mg/dl (0.2-1.3); BLOOD UREA NITROGEN 26 mg/dl (7-20); CARBON DIOXIDE 35 mmol/L (21-31); CHLORIDE 104 mmol/L (97-110); GLUCOSE 156 mg/dl (70-220); POTASSIUM 5.2 mmol/L (3.5-5.1); SODIUM 136 mmol/L (135-144); TOTAL PROTEIN 3.7 g/dl (6.1-8.1)
[2018-09-13 07:32] LABS: ANISOCYTOSIS 1+ (0-0); BAND NEUTROPHILS #M 0.1 10^3/ul (0.0-0.6); BAND NEUTROPHILS % (M) 1 % (0-4); LYMPHOCYTES #M 0.9 10^3/ul (0.8-2.9); LYMPHOCYTES % (M) 6 % (15-51); MICROCYTOSIS 1+ (0-0); PLATELET ESTIMATE SIG DECREASED; POIKILOCYTOSIS 1+ (0-0); POLYCHROMASIA 3+ (0-0); SEGMENTED NEUTROPHILS (M) % 93 % (39-77); SMUDGE%M 82 % (0-0); TARGET CELLS 1+ (0-0); TEAR DROP CELLS 1+ (0-0)
[2018-09-13] MEDS: LAMOTRIGINE 100 MG TAB PO ×2 (08:22→21:00)
[2018-09-13] MEDS: DOCUSATE SODIUM 10 MG/ML (10ML CUP) GTB ×2 (08:22→21:00)
[2018-09-13] MEDS: COLLAGENASE 5 GM (UD JAR) TOP (08:23)
[2018-09-13] MEDS: VALPROIC ACID LIQUID CUP 250 MG/5 ML CUP NGT ×2 (08:23→21:00)
[2018-09-13] MEDS: oxyCODONE (CR) 10 MG TAB [oxyCONTIN] PO ×2 (08:23→21:00)
[2018-09-13] MEDS: DIGOXIN 500 MCG INJ IV (13:28)
[2018-09-13] MEDS ORDERED: DOBUTamine/D5W 1 MG/ML DRIP 250 ML IV (19:00)
[2018-09-13] MEDS: SOD CHLORIDE 0.9% 1,000 ML IV (19:03)
[2018-09-13] MEDS: DOPamine-D5W 1.6 MG/ML 250 ML IV (19:21)
[2018-09-13] MEDS: VASOPRESSIN 60 UNIT in DEXTROSE 5% 57 ML IV (19:56)
[2018-09-13] MEDS: morphine (DRIP) 100 MG/100 ML 100 ML IV (21:39)
[2018-09-14] MEDS: MIDAZOLAM (DRIP) 50 mg/50 mL 50 ML IV (00:26)
== END 2018-09-14 01:02 | disposition expired | DRG 70 ==
LOC: ICU 09-10 11:10 → E/R 17:16 → TEL 20:50 → ICU 23:40
PROVIDERS: Internal Medicine
PROC: 5A1955Z Respiratory Ventilation, Greater than 96 Consecutive Hours (ICD-10-PCS; principal; 2018-09-07)
PROC: 5A12012 Performance of Cardiac Output, Single, Manual (ICD-10-PCS; 2018-09-07)
PROC: 0BH17EZ Insertion of Endotracheal Airway into Trachea, Via Natural or Artificial Opening (ICD-10-PCS; 2018-09-07)
PROC: 02HV33Z Insertion of Infusion Device into Superior Vena Cava, Percutaneous Approach (ICD-10-PCS; 2018-09-07)
PROC: 30233N1 Transfusion of Nonautologous Red Blood Cells into Peripheral Vein, Percutaneous Approach (ICD-10-PCS; 2018-09-12)
DX: G93.41 Metabolic encephalopathy (principal); R65.21 Severe sepsis with septic shock; A41.9 Sepsis, unspecified organism; J18.9 Pneumonia, unspecified organism; J96.21 Acute and chronic respiratory failure with hypoxia; C16.9 Malignant neoplasm of stomach, unspecified; E46 Unspecified protein-calorie malnutrition; Z68.1 Body mass index [BMI] 19.9 or less, adult; E87.2 Acidosis; I82.621 Acute embolism and thrombosis of deep veins of right upper extremity; T82.528A Displacement of other cardiac and vascular devices and implants, initial encounter; I31.3 Pericardial effusion (noninflammatory); C78.6 Secondary malignant neoplasm of retroperitoneum and peritoneum; R18.8 Other ascites; I42.9 Cardiomyopathy, unspecified; I46.9 Cardiac arrest, cause unspecified; D64.81 Anemia due to antineoplastic chemotherapy; D63.0 Anemia in neoplastic disease; D75.82 Heparin induced thrombocytopenia (HIT); T45.515A Adverse effect of anticoagulants, initial encounter; I80.8 Phlebitis and thrombophlebitis of other sites; E16.2 Hypoglycemia, unspecified; G40.909 Epilepsy, unspecified, not intractable, without status epilepticus; Z66 Do not resuscitate; Z87.891 Personal history of nicotine dependence
CPT/HCPCS: 31500; 36415; 36430; 36569; 36600; 70450; 71045; 71250; 76937; 80048; 80053; 80202; 80307; 81001; 81003; 82550; 82553; 82803; 82962; 83605; 83735; 83880; 84443; 84484; 85025; 85610; 85730; 86850; 86900; 86901; 86920; 87040; 87070; 87081; 87086; 89220; 92950; 93005; 93306; 93971; 94002; 94003; 94770; 96374; 99285-25